=== PATIENT | female | born 1985 | race Caucasian/White ===

== ENCOUNTER → 2018-07-09 13:15 | Outpatient (CLI) | payer OTHER, SELFPAY ==
--- NOTE | 2018-07-09 | DI.US.S_ITS ---
PROCEDURE: US OB >= 14 WEEKS FETUS INDICATIONS: 20 WEEK ANATOMICAL SURVEY OUTSIDE/PRIOR DATING DATA: Last menstrual period (LMP): Unknown. LMP-based estimated date of delivery (JACK): N./A.. First dating scan (date and location): 07/09/18. Estimated date of delivery (JACK) from first dating scan: 11/23/18. TECHNIQUE: Real-time scanning was performed of the fetus, with image documentation and biometric measurements. Endovaginal scanning: No COMPARISON: None. FINDINGS: General: A single living intrauterine gestation is present. Presentation: Breech Placenta: Placental position is anterior, without previa. Amniotic fluid index: 14.5 cm, normal range is 5-24 cm. heart rate: 150 beats per minute. Maternal cervical canal: 3.4 cm long. Normal lower limit is 2.5 cm. biometrics: Biparietal diameter: 20 weeks 4 days Head circumference: 20 weeks 2 days Abdominal circumference: 20 weeks 2 days Femur length: 20 weeks 2 days Estimated gestational age from initial scan: not applicable. Composite gestational age from present scan: 20 weeks 3 days Estimated weight : 345 g Measurement variability for biometric dating: +/- 7 days from 14 weeks to 15 weeks 6 days gestation, +/- 10 days from 16 weeks to 21 weeks 6 days gestation, +/- 2 weeks from 22 weeks to 27 weeks 6 days gestation, +/- 3 weeks for 28 weeks gestation or later. weight reference: 4500 g or EFW >90/95% is considered macrosomia or large for gestational age. EFW <10% is small for gestational age. EFW 5% or less is considered intra-uterine growth restriction. Anatomic survey: Neuro: Ventricles are non-dilated at less than 10 mm. Cisterna magna is normal at 3-11 mm. Cerebellum is normal in size and morphology. Nuchal skin fold: Normal at less than 6 mm between 14-21 weeks gestational age. Face: Nose and lips, facial profile are normal. Spine: No evidence for spina bifida. Heart: 4-chambered heart is present, with normal ventricular outflow tracts. Left ventricular intracardiac focus. Diaphragm: Diaphragm is intact. Stomach: Left-sided stomach is present. Kidneys: No hydronephrosis. Normal is less than 5 mm in 2nd trimester, less than 7 mm in 3rd trimester. Cord: 3-vessel cord has orthotopic insertion. Bladder: Normal in size. Extremities: All 4 extremities identified. IMPRESSION: Single living IUP with composite gestational age of 20 weeks 3 days corresponding to ultrasound JACK of 11/23/18. Echogenic intracardiac focus: 1.4-1.8 fold likelihood of Down syndrome. If isolated finding, consider aneuploidy screening with cell-free DNA. If aneuploidy screen is negative, no further evaluation needed. Anatomic survey otherwise is normal. Dictated by: David CHRISTOPHER Interpreted: Nazanin Albright MD on 07/09/2018 at 16:05 Approved by: Nazanin Albright M.D. on 07/09/2018 at 16:41
== END ==
PROVIDERS: Visit Provider Midwife
DX: Z36.89 Encounter for other specified antenatal screening (principal); Z3A.20 20 weeks gestation of pregnancy
CPT/HCPCS: 76811

== ENCOUNTER → 2020-07-21 10:45 | Outpatient (CLI) | payer OTHER, SELFPAY ==
--- NOTE | 2020-07-21 | DI.US.S_ITS ---
PROCEDURE: US OB >= 14 WEEKS FETUS INDICATIONS: ANATOMY SCAN OUTSIDE/PRIOR DATING DATA: Last menstrual period (LMP): 03/07/20 . LMP-based estimated date of delivery (JACK): 12/12/20. First dating scan (date and location): 07/21/20 . Estimated date of delivery (JACK) from first dating scan: 12/08/20 . TECHNIQUE: Real-time scanning was performed of the fetus, with image documentation and biometric measurements. Endovaginal scanning: Not performed COMPARISON: [facility], OB >= 14 WEEKS FETUS, 07/09/2018, 13:48. FINDINGS: General: A single living intrauterine gestation is present. Presentation: Vertex. Placenta: Placental position is anterior , without previa. Amniotic fluid index: 12.4 cm, normal range is 5-24 cm. heart rate: 143 beats per minute. Maternal cervical canal: 4.1 cm long. Normal lower limit is 2.5 cm. biometrics: Biparietal diameter: 4.8 cm, 20 weeks 3 days Head circumference: 17.5 cm, 20 weeks 0 days Abdominal circumference: 14.6 cm, 19 weeks, 6 days Femur length: 3.17 cm, 19 weeks 6 days Estimated gestational age from initial scan: 20 weeks 0 days Composite gestational age from present scan: 20 weeks 0 days Estimated weight and percentile: 321 grams, 74th percentile Measurement variability for biometric dating: +/- 7 days from 14 weeks to 15 weeks 6 days gestation, +/- 10 days from 16 weeks to 21 weeks 6 days gestation, +/- 2 weeks from 22 weeks to 27 weeks 6 days gestation, +/- 3 weeks for 28 weeks gestation or later. weight reference: 4500 g or EFW >90/95% is considered macrosomia or large for gestational age. EFW <10% is small for gestational age. EFW 5% or less is considered intra-uterine growth restriction. Anatomic survey: Neuro: Ventricles are non-dilated at less than 10 mm. Cisterna magna is normal at 3-11 mm. Cerebellum is normal in size and morphology. Nuchal skin fold: Normal at less than 6 mm between 14-21 weeks gestational age. Face: Nose and lips, facial profile are normal. Spine: No evidence for spina bifida. Heart: 4-chambered heart is present, with normal ventricular outflow tracts. Diaphragm: Diaphragm is intact. Stomach: Left-sided stomach is present. Kidneys: No hydronephrosis. Renal pelves measure 2.5-2.6 mm. Normal is less than 5 mm in 2nd trimester, less than 7 mm in 3rd trimester. Cord: 3-vessel cord has orthotopic insertion. Bladder: Normal in size. Extremities: All 4 extremities identified. IMPRESSION: Single living intrauterine fetus in vertex presentation Expected interval growth Normal anatomic survey. Dictated by: Boyd Singh M.D. on 07/21/2020 at 14:18 Approved by: Boyd Singh M.D. on 07/21/2020 at 14:35
== END ==
PROVIDERS: PCP Midwife; Referring Provider Midwife; Visit Provider Midwife
DX: Z34.92 Encounter for supervision of normal pregnancy, unspecified, second trimester (principal); Z3A.20 20 weeks gestation of pregnancy
CPT/HCPCS: 76811

== ENCOUNTER → 2023-01-18 14:11 | Outpatient (CLI) | payer OTHER, MEDICAID, SELFPAY ==
--- NOTE | 2023-01-18 | DI.US.S_ITS ---
PROCEDURE: US OB >= 14 WEEKS FETUS INDICATIONS: 20WK ANATOMY SCAN AND UMBILICAL HERNIA OUTSIDE/PRIOR DATING DATA: Last menstrual period (LMP): 08/27/2022. LMP-based estimated date of delivery (JACK): 06/03/2023 First dating scan (date and location): Unknown Estimated date of delivery (JACK) from first dating scan: A non. The calculations are made using the clinical JACK of 06/03/2023. TECHNIQUE: Real-time scanning was performed of the fetus, with image documentation and biometric measurements. Endovaginal scanning: Non COMPARISON: [facility], OB >= 14 WEEKS FETUS, 07/21/2020, 10:58. FINDINGS: General: A single living intrauterine gestation is present. Presentation: Breech. Placenta: Placental position is posterior , without previa. Amniotic fluid index: 15.3 cm, normal range is 5-24 cm. Single deepest vertical pocket is 6.3 cm. heart rate: 150 beats per minute. Maternal cervical canal: 3.4 cm long. Normal lower limit is 2.5 cm. biometrics: Biparietal diameter: 4.7 cm, 20 week 1 day Head circumference: 17.5 cm, 20 week 0 day Abdominal circumference: 15.9 cm, 21 week 0 day Femur length: 3.2 cm, 19 week 6 day Clinically estimated gestational age: 20 week 4 day Composite gestational age from present scan: 20 week 2 day Estimated weight and percentile: 353 g, 37th percentile Anatomic survey: Neuro: Ventricles are non-dilated at less than 10 mm. Cisterna magna is normal at 3-11 mm. Cerebellum is normal in size and morphology. Nuchal skin fold: Normal at less than 6 mm between 14-21 weeks gestational age. Face: Nose and lips, facial profile are normal. Spine: No evidence for spina bifida. Heart: 4-chambered heart is present, with normal ventricular outflow tracts. Incidental 2 left ventricular echogenic foci measuring 1 mm each Diaphragm: Diaphragm is intact. Stomach: Left-sided stomach is present. Kidneys: No hydronephrosis. Normal is less than 5 mm in 2nd trimester, less than 7 mm in 3rd trimester. Cord: 3-vessel cord has orthotopic insertion. Bladder: Normal in size. Extremities: All 4 extremities identified. Incidental note is made of a maternal small umbilical hernia containing fluid measuring approximately 1.5 cm IMPRESSION: Single live intrauterine consistent with 20 week 2 day gestation by current ultrasound Approved by: Jeremi Rea M.D. on 01/18/2023 at 17:37
== END ==
PROVIDERS: Referring Provider Midwife; Visit Provider Midwife
DX: O99.891 Other specified diseases and conditions complicating pregnancy (principal); K42.9 Umbilical hernia without obstruction or gangrene; Z3A.20 20 weeks gestation of pregnancy
CPT/HCPCS: 76811

== ENCOUNTER 2023-05-01 22:29 | Inpatient (IN) | payer OTHER, MEDICAID, SELFPAY ==
--- NOTE | 2023-05-02 02:00 | P.HPOB_ITS ---
OB HPI Date/Time Date of admission: 05/02/23 Date Patient Seen: 05/02/23 Time Patient Seen: 02:00 History of Present Condition Chief complaint: observation of labor : 4 Para: 3 Estimated Date of Delivery: 06/03/23 Estimated Gestational Age (weeks): 35w2d Narrative: Maya Carter is a 37 year old female at 35w2d on admission. She is transferring in from a planned home with Jackie Colón LM from [facility] [employer]. Her LMP was 08/27/22, giving her an JACK of 06/03/23. This was confirmed by an anatomy scan on 12/29/22. She began having contractions a couple of days ago but around 2100 on 05/01/23, they became more regular and painful. Maya declined most labs in . She did arben card for blood typing at her NOB visit 11/13/22. She did H&H twice during . Maya has a history of 3 home births at term. She does not think her water is broken. History of Present care: good care, limited care, initiated at week # (11), number of visits (5) and pounds weight gain (unknown) Dating criteria: LMP confirmed by 2nd trimester US Ultrasounds: normal mid trimester US (with 2 EIF found) Obstetrical complications: none Medical complications: none Preadmission Labs Blood type: A (+) positive HCT: 41 Narrative: All labs declined except as mentioned above. Prior (ies) History: 3 term at home: 05/04/16, 11/24/18, 12/10/20 Evaluation Evaluation Baseline heart rate: 140 Variability: Moderate (11-25) monitor accelerations: Present Monitor Decelerations: Absent Contraction Frequency (minutes): 5 Status: Category l Dilation (cm): 2 Effacement (%): 90 Dilation: 1-2 cm Effacement: >/=80% station: -1 Position of cervix: anterior Consistency: soft Camacho score: 10 Comments: Vertex presentation by cervical exam. [facility] Family History (Updated 05/02/23 @ 03:22 by Marine Castrejon, KIM, MICHAEL) Father Hypertension Aunt Stroke Grandmother Osteoporosis Glaucoma Social History Smoking Status: Unknown if ever smoked Comment: NKDA Meds Home Medications and Allergies Home Medications Medication Instructions Recorded Confirmed Type No Known Home Medications 05/02/23 05/02/23 History Allergies Allergy/AdvReac Type Severity Reaction Status Date / Time No Known Allergies Allergy Verified 05/02/23 02:41 adhesive tape AdvReac Verified 05/02/23 02:40 Review of Systems Review of Systems Narrative: All negative except as mentioned above. OB Exam Vital signs Blood Pressure: 132/80 Pulse Rate: 89 Respiratory Rate: 16 Temperature: 97.9 F Resp Effort & Inspection: normal respiratory effort and able to speak in complete sentences Objective Labs 05/02/23 02:39 Labs: Laboratory Results - last 24 hr 05/02/23 00:56 Group B Strep (PCR) Neg for grp b strep Assessment and Plan Assessment and Plan Assessment and Plan narrative: at 35w2d in early labor GBS unknown Rh positive Admit to unit for observation and labor management PRN GBS PCR sent to lab. RN reviewed recommendation for IV and antibiotics prior to this CNM arriving. Continuous monitoring due to pre-term labor. LM records reviewed by KIM at 0300, revealing that Maya had declined any labs during . Anticipate .
[2023-05-02 02:31] LABS: Strep Grp B PCR NEG for Grp B Strep
[2023-05-02 02:46] VITALS: BP 138/84
[2023-05-02 02:49] LABS: Add Manual Diff / Slide Review NO; Basophils Absolute Auto 200 /uL (0-100); Basophils Percent Auto 1.6 % (0-2); Eosinophils Absolute Auto 0 /uL (0-450); Eosinophils Percent Auto 0.2 % (2-4); Hematocrit 37.7 % (36-46); Hemoglobin 12.8 g/dL (12.0-16.0); Lymphocytes Absolute Auto 1300 /uL (1100-4500); Lymphocytes Percent Auto 9.7 % (25-40); Mean Corpuscular Hemoglobin 29.5 PG (26-34); Mean Corpuscular Volume 86.7 fL (80-100); Monocytes Absolute Auto 1200 /uL (0-900); Monocytes Percent Auto 8.3 % (3-14); Neutrophils Absolute Auto 11200 /uL (1500-7000); Neutrophils Percent Auto 80.2 % (50-75); Platelet Count 212 X10^3/uL (150-400); Red Blood Cell Count 4.35 X10^6/uL (4.0-5.2); White Blood Cell Count 13.9 X10^3/uL (4.5-11.0)
[2023-05-02 03:08] VITALS: BP 132/80; PULSE 89; RESP 16; TEMP 36.6
--- NOTE | 2023-05-02 03:35 | P.PNOB_ITS ---
Date/Time Date Patient Seen: 05/02/23 Time Patient Seen: 02:35 Pain Control Pain control: other (none) Comments: Maya is laboring in the tub when I arrived to the unit. This CNM was asked to take over care by RN and Dr. Jackson agreed to this plan of care. Maya refuses IV access and antibiotic prophylaxis. She also refuses cervical exams. She is working hard with contractions. After getting out of the tub, she went into a hands and knees position on the bed, leaning on the CUB. She is well supported by her Licenced transportation aide, Sonny, her , Frankie, and her mother. Pelvic Exam Comments: SVE declined at this time. Earlier, CE by LM was 2/90/-1/anterior/soft & stretchy with lots of bloody show, vertex presentation. Vital signs: 138/84 Temp 97.2 F Contractions Monitor mode: External Contraction frequency (min): 3 (2-4) Contraction duration (min): 60 Contraction pattern: Regular Contraction intensity: Strong/Firm Status status: Category l Heart Rate Baseline: 150 Monitor Accelerations: Present Monitor Decelerations: Absent Monitor Variability: Moderate Comments: [place] not picking up contractions. Very mild decelerations to 135 bpm occasionally. Assessment and Plan Assessment: active labor Plan: continuous present management Comments: 37 year old [id number] at 35w3d GBS unknown on admission; GBS negative PCR Rh positive Antibody screen negative 11/2022 Normal hemoglobin 11/2022 and 03/2023. No other labs collected this Reviewed that waterbirth at hospital is frowned upon and not recommended for pre-term babies, so recommend Maya get out of the tub. Peds and RT to be called for ; discussed with Maya and family. Strong recommendation for IV access and GBS prophylaxis given and reasons reviewed in detail with Maya, her , and her mother while awaiting GBS PCR result. Maya refuses. Anticipate NSVB.
[2023-05-02 06:43] LABS: Urine Chlamydia NOT DETECTED; Urine N gonorrhoeae NOT DETECTED
--- NOTE | 2023-05-02 06:48 | P.PCNOB_ITS ---
Events: Other (Transfer in from licenced net lead developer from planned home due to pre-term labor) Labor & Delivery Delivery date: 05/02/23 Delivery monitor: external FHT Route of delivery: L&D Laceration Description: None Estimated blood loss (mL): 405 Anesthesia Type: None Complications: Pre-term labor and delivery Narrative: Labor progressed well, with intense contractions from approx 0130 until Maya asked for exam at 0532. SVE 8/80/-1 with palpable tight bag of solorzano. FHR Cat 2 throughout labor with occasional late decelerations and moderate variability. Within 1 minute, SROM, clear fluid, and immediately Maya felt the spontaneous urge to push. She pushed effectively for a short 2nd stage in a hands and knees position. NSVB of baby at 0537, shoulders delivered easily. Baby boy was well toned and cried easily with stimulation and drying by me and then passed through Maya's legs for her to receive him. Geothermal Technician and RT on standby but left when baby doing well. Apgars 7/8. They remained skin to skin while cord was cut and placenta was delivered. Placenta delivered spontaneously with maternal efforts and appeared to be intact. 3 vessel cord clamped by KIM and cut by Frankie at 10 minutes of life after cord pulsing had stopped. Cord blood collected for blood typing. Perineum inspected and found to be intact. Blood loss measured and estimated loss is 405 mL. Baby needed only stimulation to breathe, but continued to need stimulation to manage occasional retractions. Mom and baby left stable and is being initiated. Maya & Frankie are thrilled to meet their baby. Maya consents to labs due to baby's early gestation and difficulty breathing. Marine RODRIGUEZ, CNM, IBCLC [place] Baby 1: gender: Male Presentation: vertex Position: Right Occiput Anterior Placenta delivery description: Spontaneous Cord Vessel Description: 3 Vessels score (1 min): 7 score (5 min): 8 weight: 2633 kg Plan for aftercare: Routine care
[2023-05-02] MEDS: IBUPROFEN 600 MG TABLET PO (14:57)
[2023-05-02 16:04] LABS: Rubella Antibody IgG 38.9 IU/mL (>15)
[2023-05-02 16:15] LABS: HIV 1 & 2 Ab/Ag 4th Gen Combo NEGATIVE (NEGATIVE); Hep C Virus Ab w/Reflex Quant NEGATIVE s/c (NEGATIVE)
[2023-05-03] MEDS: IBUPROFEN 600 MG TABLET PO (00:27)
[2023-05-03 05:20] LABS: Hepatitis B Core Antibody Negative (Negative)
--- NOTE | 2023-05-03 08:42 | P.DS_ITS ---
Discharge Providers Provider Date of admission: 05/01/23 22:29 Discharge Date: 05/03/23 Consults: 05/02/23 00:46 Consult to Anesthesiology Urgent Comment: Consulting Provider: Delbert Horn Reason for consultation: Epidural 05/03/23 06:29 Consult to Fiscal Assistant Routine Comment: Discharge provider: Marine Castrejon CNM, ARNP Summary Hospital Course Date Patient Seen: 05/03/23 Time Patient Seen: 08:46 Diagnoses: [id number], o80 Hospital Course: PPD#1: NSVB over intact perineum, routine course. Ambulating, and voiding independently. Pain is well controlled wtih ibuprofen (only took once). Tolerating a normal diet. Suzie is at bedside and supportive. Automotive Internet Sales Manager and nursing staff have done extensive teaching regarding care of late , parents feel ready and confident going home. Peripartum Data Infant Delivery Method: Natural Vaginal Laceration Description: None Episiotomy description: None complications: none 1: Gender: Male Disposition of : home Discharge Diagnosis (1) delivered vaginally, 2,500 grams and over, 35-36 completed weeks: Start Date: 05/02/23 Start Time: 05:37 Status: Acute Status at Discharge Cognitive/behavioral status at discharge: at baseline, oriented Functional status at discharge: independent ambulation Overall status at discharge: patient is progressing back to baseline Time Spent with Patient Time attestation: Total time spent providing and/or coordinating discharge services: Objective Labs 05/02/23 02:39 Labs: Laboratory Results - last 24 hr 05/02/23 09:55 Hep B Core Total Ab Negative Hepatitis C Antibody Negative HIV 1&2 Ab/P24 Ag 4thGn Negative Rubella Antibody 38.9 Exam Vital Signs (past 8 hours): BP: 133/81 mmHg HR: 83 bpm RR: 15/min T: 98.3F Sp02: 99% Other: [employer], at U-1, midline. Discharge Plan Discharge Plan Patient Disposition: Home Discharge orders & Medications Prescriptions: No Action No Known Home Medications Diet/Activity/Treatments Diet: Regular Diet comment: High fiber, stay hydrated Activity: Low flaherty x2 weeks, in and around bed Skin/Wound/Dressing Care Report to your healthcare provider any signs of infection, such as:: chills, fever, increased pain, unusual drainage and unusual redness Visit Report/Discharge Packet Instructions: DI for Depression Stand Alone Forms: Patient Portal/API
[2023-05-03 10:38] VITALS: BP 126/80; PULSE 90; RESP 16; TEMP 36.4
[2023-05-08 10:59] LABS: Treponema pallidum Antibodies Non Reactive
== END 2023-05-03 12:10 | disposition home or self-care (01) | DRG 560 ==
PROVIDERS: Advanced Practice Midwife; Admitting Provider Obstetrics & Gynecology; Referring Provider Obstetrics & Gynecology; Visit Provider Obstetrics & Gynecology
DX: O60.10X0 Preterm labor with preterm delivery, unspecified trimester, not applicable or unspecified (principal); Z37.0 Single live birth; Z3A.35 35 weeks gestation of pregnancy; O76 Abnormality in fetal heart rate and rhythm complicating labor and delivery
CPT/HCPCS: 36415; 59050; 85025; 86704; 86762; 86780; 86803; 86850; 86900; 86901; 87081; 87389; 87491; 87591; 87653; G0379